=== PATIENT | male | born 1965 | race Hispanic/Latino ===

== ENCOUNTER 2017-08-25 11:28 | Inpatient (IN) | payer SELFPAY ==
[2017-08-25] VITALS (19 sets, daily range): BP systolic 137–191; BP diastolic 77–105
[~2017-08-25] VITALS: Ht 167.6 cm; Wt 85.5 kg
[2017-08-25] MEDS ORDERED: LABETALOL HCL 5 MG/ML 20ML VIAL IV ONE (12:01)
[2017-08-25 12:08] LABS: BASOPHILS % (AUTO) 0.6 % (0.0-5.0); EOSINOPHILS % (AUTO) 1.3 % (0.0-8.0); HEMATOCRIT 51.8 % (42-54); MEAN CORPUSCULAR HEMOGLOBIN 30.1 pg (27.0-33.0); MEAN CORPUSCULAR HGB CONC 34.3 g/dL (32.0-36.0); MONOCYTES % (AUTO) 5.5 % (3.0-13.0); NEUTROPHILS % (AUTO) 78.6 % (40.0-77.0); NUCLEATED RED BLOOD CELLS 0.1 % (0.0-0.19); PLATELET COUNT (AUTO) 264 K/uL (130-400); RED BLOOD CELL COUNT(AUTO) 5.88 MIL/uL (4.50-6.20); RED CELL DISTRIBUTION WIDTH 13.6 % (11.0-15.5); WHITE BLOOD COUNT (AUTO) 9.3 K/uL (4.8-10.8)
[2017-08-25 12:13] LABS: POTASSIUM 3.4 mmol/L (3.5-5.1)
[2017-08-25 12:27] LABS: ALBUMIN 4.8 g/dL (3.5-5.0); BILIRUBIN,TOTAL 0.6 mg/dL (0.2-1.0); CREATINE KINASE MB 2.3 ng/mL (0.5-3.6); TOTAL PROTEIN, SERUM 9.2 g/dL (6.0-8.3)
[2017-08-25 12:34] LABS: INR 0.95 (0.85-1.15); PARTIAL THROMBOPLASTIN TIME 27.4 SEC (26.3-35.5)
[2017-08-25 12:58] LABS: APPEARANCE,URINE CLEAR (CLEAR); BILIRUBIN,URINE NEGATIVE (NEGATIVE); COLOR,URINE YELLOW (YELLOW); GLUCOSE, URINE (UA) NEGATIVE (NEGATIVE); KETONES,URINE NEGATIVE (NEGATIVE); LEUKOCYTE ESTERASE ,URINE NEGATIVE (NEGATIVE); NITRATE,URINE NEGATIVE (NEGATIVE); OCCULT BLOOD,URINE SMALL (NEGATIVE); PROTEIN,URINE >=300 (NEGATIVE); UROBILINOGEN,URINE 0.2 mg/dL (0.2-1.0)
[2017-08-25 13:10] LABS: AMPHET/METH SCREEN,URINE NEGATIVE (NEGATIVE); BARBITURATE SCREEN, URINE NEGATIVE (NEGATIVE); BENZODIAZEPINES SCREEN,URINE NEGATIVE (NEGATIVE); CANNABINOID SCREEN,URINE NEGATIVE (NEGATIVE); COCAINE SCREEN,URINE POSITIVE (NEGATIVE); OPIATE SCREEN,URINE NEGATIVE (NEGATIVE); PHENCYCLIDINE SCREEN,URINE NEGATIVE (NEGATIVE)
[2017-08-25 13:14] LABS: BACTERIA,URINE Rare /HPF (None Seen); RBC,URINE 0-1 /HPF (0-1); SQUAMOUS EPITHELIAL CELL,UR Rare /HPF (0-2); WBC,URINE 0-1 /HPF (0-1)
[2017-08-25] MEDS ORDERED: TETRACAINE HCL 0.5% 4 ML OPHTH SOLN ONE (13:17)
[2017-08-25] MEDS ORDERED: NICARDIPINE IN NACL, ISO-OSM 200 ML IV ONE (13:51)
[2017-08-25] MEDS ORDERED: POTASSIUM BICARB/CIT AC 25 MEQ TABLET.EFF ONE (14:03)
[2017-08-25] MEDS ORDERED: ACETAMINOPHEN 325 MG TAB PO PRN (14:45)
[2017-08-25] MEDS ORDERED: ONDANSETRON HCL MDV 20ML 2 MG/ML VIAL IVP PRN (14:45)
[2017-08-25] MEDS: NICARDIPINE IN NACL, ISO-OSM 200 ML IV SCH (17:37)
[2017-08-25] MEDS: HYDRALAZINE HCL 10 MG TABLET PO SCH (21:17)
[2017-08-25] MEDS: LISINOPRIL 10 MG TABLET PO SCH (21:18)
[2017-08-25] MEDS ORDERED: LIDOCAINE HCL-MPF 1% 2ML VIAL IVP PRN ×2 (22:30)
[2017-08-25] MEDS ORDERED: POTASSIUM CHLORIDE 20 MEQ ERTAB PO PRN (22:30)
[2017-08-25] MEDS ORDERED: POTASSIUM CHLORIDE 10% ELIXIR 20 MEQ/15 ML UDCUP PO PRN ×2 (22:30)
[2017-08-25] MEDS ORDERED: POTASSIUM CHLORIDE 20MEQ/100ML 100 ML IV PRN ×2 (22:30)
[2017-08-26] VITALS (27 sets, daily range): BP systolic 102–172; BP diastolic 60–109
[2017-08-26] MEDS: NICARDIPINE IN NACL, ISO-OSM 200 ML IV SCH (00:22)
[2017-08-26 04:04] LABS: BASOPHILS % (AUTO) 0.6 % (0.0-5.0); EOSINOPHILS % (AUTO) 3.3 % (0.0-8.0); HEMATOCRIT 44.9 % (42-54); MEAN CORPUSCULAR HEMOGLOBIN 30.5 pg (27.0-33.0); MEAN CORPUSCULAR HGB CONC 34.8 g/dL (32.0-36.0); MEAN CORPUSCULAR VOLUME 87.8 fL (79-99); MONOCYTES % (AUTO) 7.4 % (3.0-13.0); NEUTROPHILS % (AUTO) 67.7 % (40.0-77.0); PLATELET COUNT (AUTO) 260 K/uL (130-400); RED BLOOD CELL COUNT(AUTO) 5.11 MIL/uL (4.50-6.20); RED CELL DISTRIBUTION WIDTH 13.8 % (11.0-15.5); WHITE BLOOD COUNT (AUTO) 9.7 K/uL (4.8-10.8)
[2017-08-26 04:39] LABS: CREATININE 1.8 mg/dL (0.5-1.5)
[2017-08-26] MEDS: HYDRALAZINE HCL 10 MG TABLET PO SCH ×3 (08:48→20:38)
[2017-08-26] MEDS: LISINOPRIL 10 MG TABLET PO SCH ×2 (08:48→20:38)
[2017-08-26] MEDS: POTASSIUM CHLORIDE 20 MEQ ERTAB PO PRN ×2 (09:02→13:05)
[2017-08-26] MEDS ORDERED: IOPAMIDOL-370 75 ML VIAL IV ONE (11:28)
[2017-08-26] MEDS: SODIUM CHLORIDE 0.9% 1000ML 1,000 ML IV SCH (11:39)
[2017-08-27] VITALS (12 sets, daily range): BP systolic 126–166; BP diastolic 72–106
[2017-08-27] MEDS: SODIUM CHLORIDE 0.9% 1000ML 1,000 ML IV SCH (01:15)
[2017-08-27 03:51] LABS: BASOPHILS % (AUTO) 0.6 % (0.0-5.0); HEMATOCRIT 42.9 % (42-54); LYMPHOCYTES % (AUTO) 24.9 % (21.0-51.0); MEAN CORPUSCULAR HEMOGLOBIN 30.5 pg (27.0-33.0); MEAN CORPUSCULAR HGB CONC 34.5 g/dL (32.0-36.0); MEAN CORPUSCULAR VOLUME 88.3 fL (79-99); MONOCYTES % (AUTO) 7.9 % (3.0-13.0); NEUTROPHILS % (AUTO) 63.6 % (40.0-77.0); PLATELET COUNT (AUTO) 216 K/uL (130-400); RED BLOOD CELL COUNT(AUTO) 4.86 MIL/uL (4.50-6.20)
[2017-08-27 03:52] LABS: CREATININE 1.1 mg/dL (0.5-1.5); POTASSIUM 3.7 mmol/L (3.5-5.1)
[2017-08-27] MEDS: HYDRALAZINE HCL 10 MG TABLET PO SCH (08:06)
[2017-08-27] MEDS: LISINOPRIL 10 MG TABLET PO SCH (08:07)
[2017-08-27] MEDS ORDERED: ASPIRIN 325MG EC TAB 325 MG TABLET.DR PO SCH (09:00)
[2017-08-27] MEDS ORDERED: FOLIC ACID/VITAMIN B COMP W-C 1 MG CAPSULE PO SCH (09:00)
[2017-08-28 07:29] LABS: HEPATITIS Bs ANTIGEN SCREEN P Negative (Negative)
== END 2017-08-27 13:50 | disposition home or self-care (01) | DRG 69 ==
LOC: EDH 11:28 → EDHIP 11:29 → 2BH 14:49
PROVIDERS: ADMIT Internal Medicine Nephrology; ATTEND Internal Medicine Nephrology
DX: G45.9 Transient cerebral ischemic attack, unspecified (principal); N17.9 Acute kidney failure, unspecified; E88.09 Other disorders of plasma-protein metabolism, not elsewhere classified; I11.9 Hypertensive heart disease without heart failure; I70.1 Atherosclerosis of renal artery; I16.1 Hypertensive emergency; E87.6 Hypokalemia; F14.10 Cocaine abuse, uncomplicated; H54.61 Unqualified visual loss, right eye, normal vision left eye; Z53.20 Procedure and treatment not carried out because of patient's decision for unspecified reasons; Z82.49 Family history of ischemic heart disease and other diseases of the circulatory system; Z91.19 Patient's noncompliance with other medical treatment and regimen
CPT/HCPCS: 36415; 70450; 70460; 70470; 70496; 71045; 76770; 80048; 80053; 80305; 81001; 82550; 82553; 82948; 83874; 84244; 84484; 85025; 85610; 85651; 85730; 86160; 86255; 86706; 87340; 87520; 93005; 93306; 93975; 99291; J3490; J7030; Q9967